=== PATIENT | male | born 1970 | race Caucasian/White ===

== ENCOUNTER 2017-09-29 03:42 | Emergency (ER) | payer SELFPAY ==
[2017-09-29 04:02] VITALS: TEMP 98.7; BMI 30.2
[2017-09-29 04:25] LABS: URINE APPEARANCE CLEAR; URINE BILIRUBIN NEGATIVE (NEGATIVE); URINE BLOOD 2+ (NEGATIVE); URINE COLOR LTYELLOW; URINE GLUCOSE (UA) NEGATIVE (NEGATIVE); URINE KETONE NEGATIVE (NEGATIVE); URINE LEUK ESTERASE TRACE (NEGATIVE); URINE NITRITE NEGATIVE (NEGATIVE); URINE PROTEIN NEGATIVE (NEGATIVE); URINE UROBILINOGEN NEGATIVE mg/dL (0.2-1.0)
[2017-09-29 04:27] LABS: EPI CELLS RARE /HPF (FEW); URINE HYALINE CAST 1 /lpf; URINE MUCUS RARE
--- NOTE | 2017-09-29 04:29 | PDOC ---
History of Present Illness - General History Source: Patient Exam Limitations: No Limitations - History of Present Illness Initial Comments: 09/29/17 05:25 The patient is a 47 year old male with a significant PMH of nephrolithiasis who presents to the emergency department complaining of dysuria. The patient reports a burning sensation every time he urinates. The patient states he has been eating and drinking normally. 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 The patient notes he had a straight cath placed 8 years ago for a urethral stricture. The patient denies chest pain , shortness of breath, headache and dizziness. Denies fever, chills, nausea, vomit, diarrhea and constipation. Denies testicular pain, penile rash, flank pain, discharge, frequency, urgency and hematuria. Allergies: NKA Past surgical history:: None reported. Social history: Current smoker. No reported alcohol or drug use. <Olena Gardner - Last Filed: 09/29/17 05:32> <Deepali Ramos - Last Filed: 09/29/17 20:40> - General Chief Complaint: Urinary Problem Stated Complaint: POSSIBLE UTI Time Seen by Provider: 09/29/17 03:57 Past History <Olena Gardner - Last Filed: 09/29/17 05:32> - Suicide/Smoking/Psychosocial Hx Smoking Status: Yes Smoking History: Current every day smoker Have you smoked in the past 12 months: Yes Number of Cigarettes Smoked Daily: 10 Information on smoking cessation initiated: No Hx Alcohol Use: No Drug/Substance Use Hx: No Substance Use Type: None <Deepali Ramos - Last Filed: 09/29/17 20:40> - Past Medical History Allergies/Adverse Reactions: Allergies Allergy/AdvReac Type Severity Reaction Status Date / Time ibuprofen [From Motrin] AdvReac Verified 09/29/17 04:01 Home Medications: Ambulatory Orders Ondansetron [Zofran *Odt*] 8 mg SL TID PRN #14 od.tablet 11/07/14 Oxycodone HCl/Acetaminophen [Percocet 5-325 mg Tablet] 1 - 2 tab PO Q4H #20 tablet 11/07/14 Tamsulosin HCl 0.4 mg PO DAILY #7 cap.er.24h 11/07/14 Sulfamethoxazole/Trimethoprim [Bactrim Ds -] 1 tab PO BID #14 tablet 09/29/17 Sulfamethoxazole/Trimethoprim [Bactrim Ds -] 1 tab PO BID #14 tablet 09/29/17 Tamsulosin HCl [Flomax] 0.4 mg PO DAILY #10 cap.er.24h 09/29/17 Review of Systems - Review of Systems Able to Perform ROS?: Yes Comments:: 09/29/17 05:33 GENERAL/CONSTITUTIONAL: No fever or chills. No weakness. HEAD, EYES, EARS, NOSE AND THROAT: No change in vision. No ear pain or discharge. No sore throat. CARDIOVASCULAR: No chest pain or shortness of breath. RESPIRATORY: No cough, wheezing, or hemoptysis. GASTROINTESTINAL: No nausea, vomiting, diarrhea or constipation. GENITOURINARY: (+) Dysuria. No frequency, or change in urination. MUSCULOSKELETAL: No joint or muscle swelling or pain. No neck or back pain. SKIN: No rash NEUROLOGIC: No headache, vertigo, loss of consciousness, or change in strength/ sensation. ENDOCRINE: No increased thirst. No abnormal weight change. HEMATOLOGIC/LYMPHATIC: No anemia, easy bleeding, or history of blood clots. ALLERGIC/IMMUNOLOGIC: No hives or skin allergy. <Olena Gardner - Last Filed: 09/29/17 05:32> *Physical Exam - Vital Signs Last Vital Signs Temp Pulse Resp BP Pulse Ox 98.7 F 68 20 114/88 100 09/29/17 04:01 09/29/17 04:01 09/29/17 04:01 09/29/17 04:01 09/29/17 04:01 - Physical Exam Comments: 09/29/17 05:36 GENERAL: Awake, alert, and fully oriented, in no acute distress HEAD: No signs of trauma EYES: PERRLA, EOMI, sclera anicteric, conjunctiva clear ENT: Auricles normal inspection, hearing grossly normal, nares patent, oropharynx clear without exudates. Moist mucosa NECK: Normal ROM, supple, no lymphadenopathy, JVD, or masses LUNGS: Breath sounds equal, clear to auscultation bilaterally. No wheezes, and no crackles HEART: Regular rate and rhythm, normal S1 and S2, no murmurs, rubs or gallops ABDOMEN: Soft, nontender, normoactive bowel sounds. No guarding, no rebound. No masses EXTREMITIES: Normal range of motion, no edema. No clubbing or cyanosis. No cords, erythema, or tenderness NEUROLOGICAL: Cranial nerves II through XII grossly intact. Normal speech, normal gait SKIN: Warm, Dry, normal turgor, no rashes or lesions noted. <Olena Gardner - Last Filed: 09/29/17 05:32> - Vital Signs Last Vital Signs Temp Pulse Resp BP Pulse Ox 98.7 F 68 20 114/88 100 09/29/17 04:01 09/29/17 04:01 09/29/17 04:01 09/29/17 04:01 09/29/17 04:01 <Deepali Ramos - Last Filed: 09/29/17 20:40> ED Treatment Course - ADDITIONAL ORDERS Additional order review: Laboratory Results 09/29/17 04:12 Urine Color Ltyellow Urine Appearance Clear Urine pH 6.0 Ur Specific [place] 1.013 Urine Protein Negative Urine Glucose (UA) Negative Urine Ketones Negative Urine Blood 2+ H Urine Nitrite Negative Urine Bilirubin Negative Urine Urobilinogen Negative Urine WBC (Auto) 3 Urine RBC (Auto) 7 Ur Epithelial Cells Rare Hyaline Casts 1 Urine Mucus Rare <Olena Gardner - Last Filed: 09/29/17 05:32> - ADDITIONAL ORDERS Additional order review: Laboratory Results 09/29/17 04:12 Urine Color Ltyellow Urine Appearance Clear Urine pH 6.0 Ur Specific [place] 1.013 Urine Protein Negative Urine Glucose (UA) Negative Urine Ketones Negative Urine Blood 2+ H Urine Nitrite Negative Urine Bilirubin Negative Urine Urobilinogen Negative <Deepali Ramos - Last Filed: 09/29/17 20:40> Medical Decision Making - Medical Decision Making 09/29/17 20:39 Pt comes with dysuria; he has a hx of kidney stones. He has kidney stones today and UTI; he will be treated with abx and with flomax and he will follow with his urologist. <Deepali Ramos - Last Filed: 09/29/17 20:40> *DC/Admit/Observation/Transfer - Attestations Scribe Attestion: 09/29/17 05:36 Documentation prepared by Olena Gardner, acting as pediatrician/medical doctor for Deepali Ramos MD. <Olena Gardner - Last Filed: 09/29/17 05:32> - Discharge Dispostion Admit: No <RamosDeepali bradford - Last Filed: 09/29/17 20:40> Diagnosis at time of Disposition: Renal colic, Hematuria, UTI (urinary tract infection) - Discharge Dispostion Disposition: HOME Condition at time of disposition: Improved - Prescriptions Prescriptions: Sulfamethoxazole/Trimethoprim [Bactrim Ds -] 1 tab PO BID #14 tablet Sulfamethoxazole/Trimethoprim [Bactrim Ds -] 1 tab PO BID #14 tablet Tamsulosin HCl [Flomax] 0.4 mg PO DAILY #10 cap.er.24h - Patient Instructions Printed Discharge Instructions: Urinary Tract Infection, Kidney Stones -- Adult
--- NOTE | 2017-09-29 04:29 | PDOC ---
Attending Attestation - Resident Resident Name: Andrez Cox - ED Attending Attestation I have performed the following: I have examined & evaluated the patient, The case was reviewed & discussed with the resident, I agree w/resident's findings & plan - HPI HPI: 09/29/17 04:29 Pt comes with fever. - Physicial Exam PE: 09/29/17 04:28 Agree with resident
[2017-09-29] MEDS ORDERED: SULFAMETHOXAZOLE/TRIMETHOPRIM 800MG/160MG D.S. TABLET PO ONE (07:01)
[2017-09-29] MEDS ORDERED: ACETAMINOPHEN 325 MG TABLET (FP) PO ONE (07:02)
[2017-09-29] MEDS ORDERED: SULFAMETHOXAZOLE/TRIMETHOPRIM 800MG/160MG D.S. TABLET ONE (07:05)
[2017-09-29] MEDS ORDERED: ACETAMINOPHEN 325 MG TABLET (FP) ONE (07:05)
[2017-09-29 07:30] VITALS: BP 122/68; PULSE 66
== END 2017-09-29 07:30 | disposition home or self-care (01) ==
LOC: JER 03:42
DX: N39.0 Urinary tract infection, site not specified (principal); N20.0 Calculus of kidney; Z87.442 Personal history of urinary calculi
CPT/HCPCS: 74176; 81003; 81015; 99282-25

== ENCOUNTER → 2018-09-20 | Emergency (ER) | payer SELFPAY ==
[~2018-09-20] MED LIST: ACETAMINOPHEN 325 MG TABLET (FP) ONE; ACETAMINOPHEN 500 MG TABLET (FP) PO ONE
[2018-09-20 23:04] VITALS: BP 112/69; PULSE 85; TEMP 98.2; BMI 23.1
--- NOTE | 2018-09-21 00:02 | PDOC ---
Attending Attestation - HPI HPI: 09/21/18 00:27 The patient is a 48 year old male, with a significant PMH of nephrolithiasis, who presents to the emergency department with back pain s/p fall. The patient states this morning he was leaving the house carrying a 10 lbs air mattress when he slipped and fell onto his back sliding down 10 stairs. The patient denies any loss of consciousness. The patient states he his able to ambulate with pain. Denies any numbness/tingling/loss of sensation. Denies any weakness. Denies any saddle anesthesia. Denies any bowel or bladder incontinence. The patient denies chest pain, shortness of breath, headache and dizziness. Denies fever, chills, nausea, vomit, diarrhea and constipation. Denies dysuria, frequency, urgency and hematuria. Allergies: Ibuprofen Documentation prepared by Kenan Daly, acting as medical physicist for Darrel Travis MD. <Kenan Daly - Last Filed: 09/21/18 00:29> - Resident Resident Name: Ángel Griffith - ED Attending Attestation I have performed the following: I have examined & evaluated the patient, The case was reviewed & discussed with the resident, I agree w/resident's findings & plan, Exceptions are as noted - Physicial Exam PE: 09/21/18 00:30 Patient left after evaluation by Dr. Griffith and prior to my physical exam. Please see physical evaluation by Dr. Griffith. - Medical Decision Making 09/21/18 00:31 48-year-old male presents with several contusions after a mechanical fall. Will rule out fracture of the right elbow, lumbosacral spine and left hip. <Darrel Travis - Last Filed: 09/21/18 00:31>
--- NOTE | 2018-09-21 00:23 | PDOC ---
History of Present Illness - General Chief Complaint: Back Pain Stated Complaint: FALL Time Seen by Provider: 09/21/18 00:01 History Source: Patient Exam Limitations: No Limitations - History of Present Illness Initial Comments: 09/21/18 00:21 Pt. is a 48 y.o. M with no active PMHx. presents to the ED s/p mechanical fall. Pt. states that when he woke up this morning he was stepped out of his home to bring a 10 lb. air mattress back to [employer] when he slipped on the top of his staircase and slid down the stairs hitting his right rib, left hip, back and the back of his head on the way down. Pt. endorses worsening pain and numbness of the left leg and the left hip since this morning. Pt. endorses pain in his right hand as a shooting pain. Pt. endorses numbness of the lateral aspect of the left leg but this has since resolved. Pt. endorsed pain on te right rib but the pain has since resolved. Pt. denies losing consciousness at any time. Pt. denies any prodromal symptoms prior to falling down. Timing/Duration: 24 hours Severity: severe Modifying Factors: improves with: immobilization, movement (makes worse ), rest (makes better ) Associated Symptoms: denies: fever/chills, headaches, malaise, weakness Past History - Past Medical History Allergies/Adverse Reactions: Allergies Allergy/AdvReac Type Severity Reaction Status Date / Time ibuprofen [From Motrin] AdvReac Verified 09/21/18 00:31 Home Medications: Ambulatory Orders Ondansetron [Zofran *Odt*] 8 mg SL TID PRN #14 od.tablet 11/07/14 Oxycodone HCl/Acetaminophen [Percocet 5-325 mg Tablet] 1 - 2 tab PO Q4H #20 tablet 11/07/14 Sulfamethoxazole/Trimethoprim [Bactrim Ds -] 1 tab PO BID #14 tablet 09/29/17 Tamsulosin HCl [Flomax] 0.4 mg PO DAILY #10 cap.er.24h 09/29/17 COPD: No - Immunization History Immunization Up to Date: Yes - Suicide/Smoking/Psychosocial Hx Smoking Status: Yes Smoking History: Never smoked Have you smoked in the past 12 months: No Number of Cigarettes Smoked Daily: 10 Information on smoking cessation initiated: No Hx Alcohol Use: No Drug/Substance Use Hx: No Substance Use Type: None Review of Systems - Review of Systems Constitutional: No: Fever, Weakness HEENTM: No: Blurred Vision, Recent change in vision Respiratory: No: Shortness of Breath Cardiac (ROS): No: Chest Pain, Lightheadedness, Palpitations ABD/GI: Yes: Rectal Bleeding. No: Constipated, Diarrhea : No: Dysuria, Discharge, Frequency Musculoskeletal: Yes: Joint Pain. No: Muscle Weakness Neurological: Yes: Unsteady Gait. No: Headache, Numbness, Paresthesia, Weakness , Ataxia, Dizziness *Physical Exam - Vital Signs Last Vital Signs Temp Pulse Resp BP Pulse Ox 98.2 F 85 18 112/69 98 09/20/18 23:00 09/20/18 23:00 09/20/18 23:00 09/20/18 23:00 09/20/18 23:00 - Physical Exam General Appearance: Yes: Nourished, Appropriately Dressed. No: Apparent Distress HEENT: positive: Normal Voice, Symmetrical Neck: negative: Decreased range of motion Respiratory/Chest: positive: Chest Tender, Lungs Clear, Normal Breath Sounds. negative: Accessory Muscle Use, Crackles, Wheezing Cardiovascular: positive: Regular Rhythm, Regular Rate, S1, S2, Edema Vascular Pulses: Dorsalis-Pedis (R): 2+, Doralis-Pedis (L): 2+ Gastrointestinal/Abdominal: positive: Normal Bowel Sounds, Soft Musculoskeletal: positive: Decreased Range of Motion Extremity: positive: Normal Capillary Refill, Normal Range of Motion, Tender, Pelvis Stable, Delayed Capillary Refill. negative: Calf Tenderness Integumentary: positive: Normal Color, Dry, Warm. negative: Erythema Neurologic: positive: Normal Response, Motor Strength 5/5. negative: Numbness Moderate Sedation - Procedure Monitoring Vital Signs: Procedure Monitoring Vital Signs Temperature 98.2 F 09/20/18 23:00 Pulse Rate 85 09/20/18 23:00 Respiratory Rate 18 09/20/18 23:00 Blood Pressure 112/69 09/20/18 23:00 O2 Sat by Pulse Oximetry (%) 98 09/20/18 23:00 ED Treatment Course - RADIOLOGY Radiology Studies Ordered: Category Date Time Status CHEST PA & LAT [RAD] Stat Radiology 09/21/18 00:14 Ordered HIP & PELVIS-LEFT [RAD] Stat Radiology 09/21/18 00:14 Ordered SPINE-LUMBAR SACRAL [RAD] Stat Radiology 09/21/18 00:14 Ordered *DC/Admit/Observation/Transfer Diagnosis at time of Disposition: Back pain, Leg pain, lateral - Discharge Dispostion Disposition: ELOPED Condition at time of disposition: Stable - Referrals - Patient Instructions - Post Discharge Activity
== END | disposition left against medical advice (07) ==
LOC: JER 22:52
CPT/HCPCS: 99282-25

== ENCOUNTER 2018-09-27 21:20 | Emergency (ER) | payer SELFPAY ==
[2018-09-27 22:33] VITALS: BP 105/65; PULSE 61; TEMP 97.7; BMI 23.1
--- NOTE | 2018-09-27 22:59 | PDOC ---
History of Present Illness - General Chief Complaint: Back Pain Stated Complaint: BACK PAIN Time Seen by Provider: 09/27/18 22:43 History Source: Patient Exam Limitations: No Limitations - History of Present Illness Initial Comments: 09/27/18 22:55 CHIEF COMPLAINT: Lower back pain HISTORY OF PRESENT ILLNESS: 48-year-old male denies medical history presents emergency Department with lower back pain status post slip and fall down stairs on 09/20. Patient states he walked out of his home while it was raining and slipped on the top step up a flight of 10 metal steps. Patient reports the pain is worse in the lower back and has been taking Tylenol for the past week. Pain is nonradiating he denies any neurosensory deficits. He denies incontinence of bladder or bowel as well as urinary retention. Denies saddle anesthesia, foot drop, history of IV drug use or cancer. REVIEW OF SYSTEMS: GENERAL: Afebrile, denies any weakness RESPIRATORY: No cough, wheezing, or hemoptysis. CARDIAC: No chest pain or shortness of breath MUSCULOSKELETAL: Pain to generalized lower back. No point tenderness. SKIN : No erythema, no bruising, no deformity. GI/: Denies any abdominal pain, no urinary difficulty, incontinence or urinary retention. RECTAL: Denies any difficulty NEUROLOGICAL: Denies any numbness or tingling. No neurosensory deficits. PHYSICAL EXAM: GENERAL: The patient is awake, alert, and fully oriented, in no acute distress. RESPIRATORY: Lungs clear bilaterally, no rhonchi wheezes or crackles CARDIAC: S1-S2 audible, no murmur rub or gallop MUSCULOSKELETAL: Pain to generalized lower back, nonradiating, no tingling or sensory deficit. No spinal point tenderness. Normal reflexive and no deficits to sensation or strength. Less than 2 second cap refill, +2 pedal pulses. GI/: Abdomen soft, nontender, nondistended. No rebound tenderness. No masses palpable. RECTAL: Deferred patient with no neurological findings SKIN: Warm, Dry, normal turgor, no erythema, no edema no bruising. Past History - Past Medical History Allergies/Adverse Reactions: Allergies Allergy/AdvReac Type Severity Reaction Status Date / Time ibuprofen [From Motrin] AdvReac Verified 09/21/18 00:31 Home Medications: Ambulatory Orders Tamsulosin HCl [Flomax] 0.4 mg PO DAILY PRN 09/27/18 COPD: No - Immunization History Immunization Up to Date: Yes - Suicide/Smoking/Psychosocial Hx Smoking Status: Yes Smoking History: Current every day smoker Have you smoked in the past 12 months: No Number of Cigarettes Smoked Daily: 10 Information on smoking cessation initiated: No Hx Alcohol Use: No Drug/Substance Use Hx: No Substance Use Type: None *Physical Exam - Vital Signs Last Vital Signs Temp Pulse Resp BP Pulse Ox 97.7 F 61 19 105/65 100 09/27/18 22:31 09/27/18 22:31 09/27/18 22:31 09/27/18 22:31 09/27/18 22:31 Moderate Sedation - Procedure Monitoring Vital Signs: Procedure Monitoring Vital Signs Temperature 97.7 F 09/27/18 22:31 Pulse Rate 61 09/27/18 22:31 Respiratory Rate 19 09/27/18 22:31 Blood Pressure 105/65 09/27/18 22:31 O2 Sat by Pulse Oximetry (%) 100 09/27/18 22:31 Medical Decision Making - Medical Decision Making 09/28/18 00:05 A/P: 48-year-old male with history of kidney stones presents emergency Department with back pain status post fall No bony tenderness to spine. Neurovascular intact No bruising present to back Ambulatory with steady gait Percocet, reassess Patient reports complete relief of pain after receiving one Percocet. Patient is requesting discharge at this time. I will discharge the patient home to follow-up with his primary doctor as needed. Patient has been instructed to continue to take Tylenol for pain relief. *DC/Admit/Observation/Transfer Diagnosis at time of Disposition: Back pain Qualifiers: Back pain location: low back pain Chronicity: acute Back pain laterality: bilateral Sciatica presence: without sciatica Qualified Code(s): M54.5 - Low back pain - Discharge Dispostion Disposition: HOME Condition at time of disposition: Stable Decision to Admit order: No - Referrals - Patient Instructions Additional Instructions: Take Tylenol as needed for pain. Follow manufacturers instructions for appropriate dosage. Try not to walk or bear weight as much as possible for the next 3 days. Warm moist heat applied to your back may help alleviate pain. Return to emergency department for numbness or tingling, worsening pain, or any other concerns. Thank you very much for choosing us to provide your emergent healthcare needs. - Post Discharge Activity
== END 2018-09-28 00:25 | disposition home or self-care (01) ==
LOC: JER 21:20
DX: M54.5 Low back pain (principal); W10.8XXA Fall (on) (from) other stairs and steps, initial encounter; Y93.89 Activity, other specified; Y92.038 Other place in apartment as the place of occurrence of the external cause; Y99.8 Other external cause status
CPT/HCPCS: 99282-25

== ENCOUNTER 2018-10-01 14:46 | Emergency (ER) | payer SELFPAY ==
[2018-10-01 15:05] VITALS: BP 115/77; PULSE 57; TEMP 97.7; BMI 23.1
[2018-10-01] MEDS ORDERED: RANITIDINE HCL 150 MG TABLET (FP) PO ONE (15:41)
[2018-10-01] MEDS ORDERED: LIDOCAINE VISCOUS 2% ORAL/TOP 20 ML UNIT-DOSE CUP MM ONE (15:41)
[2018-10-01] MEDS ORDERED: ONDANSETRON *ODT* 4 MG TABLET SL ONE (15:41)
[2018-10-01] MEDS ORDERED: MAG HYDROX/AL HYDROX/SIMETH -MYLANTA- ORAL SUSPENSION PO ONE (15:41)
--- NOTE | 2018-10-01 15:46 | PDOC ---
Attending Attestation - Resident Resident Name: Trent Yao - ED Attending Attestation I have performed the following: I have examined & evaluated the patient, The case was reviewed & discussed with the resident, I agree w/resident's findings & plan, Exceptions are as noted - HPI HPI: 10/01/18 15:43 48y M hx of gastritis (formerly on nexium) presents with 1 month of epigastric burning radiating up to the chest. Patient notes that the pain is similar to him and typically occurs after eating any type of food, and usually occurs at night when he is sleeping lying down. Patient does endorse some nausea and vomiting . 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 Patient denies eating significant amount of spicy foods, NSAIDs, EtOH abuse. Patient does note he drinks a lot of soda. Patient notes that his Nexium use to work however has not been very effective recently so he has not been using it. +smoking - Physicial Exam PE: 10/01/18 16:02 GENERAL: The patient is awake, alert, and fully oriented, Nontoxic - in no acute distress. HEAD: Normocephalic, atraumatic. EYES: extraocular movements intact, sclera anicteric, conjunctiva clear. ENT: Normal voice, Moist mucous membranes. NECK: Normal range of motion, supple LUNGS: Breath sounds equal, clear to auscultation bilaterally. No wheezes, no rhonchi, no rales. HEART: Regular rate and rhythm, normal S1 and S2 without murmur, rub or gallop. ABDOMEN: Soft, nontender, normoactive bowel sounds. No guarding, no rebound. No CVA tenderness EXTREMITIES: Normal range of motion, no edema. No clubbing or cyanosis. No cords, erythema, or tenderness. NEUROLOGICAL: No facial assymetry, Normal speech, PSYCH: Normal mood, normal affect. SKIN: Warm, Dry, normal turgor, - Medical Decision Making 10/01/18 16:02 Suspect acid reflux/gastritis No exertional symptoms to suggest acute coronary disease Intermittent symptoms over long period time suggest against pancreititis Will obtain an EKG to screen for ACS, will treat the patient symptomatically will refer to PMD and GI Heart Score/ECG Review - ECG Impressions Comment:: 10/01/18 16:04 Twelve-lead EKG was performed and reviewed by me. There is normal sinus rhythm with Rate of 51 Normal axis Right bundle-branch block No ST changes suggestive of acute ischemia
[2018-10-01] MEDS ORDERED: MAG HYDROX/AL HYDROX/SIMETH 30 ML UNIT-DOSE CUP ONE (15:53)
[2018-10-01] MEDS ORDERED: ONDANSETRON *ODT* 4 MG TABLET ONE (15:53)
[2018-10-01] MEDS ORDERED: LIDOCAINE VISCOUS 2% ORAL/TOP 20 ML UNIT-DOSE CUP ONE (15:53)
[2018-10-01] MEDS ORDERED: RANITIDINE HCL 150 MG TABLET (FP) ONE (15:53)
--- NOTE | 2018-10-01 16:02 | PDOC ---
History of Present Illness - General Chief Complaint: Pain, Acute Stated Complaint: ABD PAIN Time Seen by Provider: 10/01/18 15:22 History Source: Patient Exam Limitations: No Limitations - History of Present Illness Initial Comments: 10/01/18 15:57 Patient is a 48M with history of nephrolithiasis here today complaining of 1 month of epigastric burning pain. Patient complains of vomiting, last episode two days ago. Denies fevers, chills. Denies blood and bile in vomit. Patient states his pain gets worse with laying down, eating and taking motrin. Patient states that he used to take nexium, but no longer takes any medication. Patient has no pcp follow up. Denies cardiac issue. Denies chest pain, shortness of breath. Past History - Past Medical History Allergies/Adverse Reactions: Allergies Allergy/AdvReac Type Severity Reaction Status Date / Time ibuprofen [From Motrin] AdvReac Verified 10/01/18 15:02 Home Medications: Ambulatory Orders Tamsulosin HCl [Flomax] 0.4 mg PO DAILY PRN 09/27/18 Esomeprazole Magnesium [Nexium 24Hr] 40 mg PO DAILY 10/01/18 Ondansetron [Zofran *Odt*] 8 mg SL BID #10 od.tablet 10/01/18 COPD: No - Immunization History Immunization Up to Date: Yes - Suicide/Smoking/Psychosocial Hx Smoking Status: Yes Smoking History: Unknown if ever smoked Have you smoked in the past 12 months: No Number of Cigarettes Smoked Daily: 10 Hx Alcohol Use: No Drug/Substance Use Hx: No Substance Use Type: None Review of Systems - Review of Systems Comments:: 10/01/18 15:59 GENERAL/CONSTITUTIONAL: No fever or chills. No weakness. HEAD, EYES, EARS, NOSE AND THROAT: No change in vision. No sore throat. CARDIOVASCULAR: No chest pain or shortness of breath RESPIRATORY: No cough, wheezing, or hemoptysis. GASTROINTESTINAL: +nausea, vomiting, no diarrhea or constipation. GENITOURINARY: No dysuria, frequency, or change in urination. MUSCULOSKELETAL: No joint or muscle swelling or pain. SKIN: No rash NEUROLOGIC: No headache, vertigo, loss of consciousness, or change in strength/ sensation. ALLERGIC/IMMUNOLOGIC: No hives or skin allergy. *Physical Exam - Vital Signs Last Vital Signs Temp Pulse Resp BP Pulse Ox 97.7 F 57 L 18 115/77 99 10/01/18 15:04 10/01/18 15:04 10/01/18 15:04 10/01/18 15:04 10/01/18 15:04 - Physical Exam Comments: 10/01/18 16:00 GENERAL: Awake, alert, and fully oriented, in no acute distress HEAD: No signs of trauma, normocephalic, atraumatic EYES: PERRLA, EOMI, sclera anicteric, conjunctiva clear ENT: Auricles normal inspection, hearing grossly normal, nares patent, oropharynx clear without exudates. Moist mucosa NECK: Normal ROM, supple, no lymphadenopathy, JVD, or masses LUNGS: No distress, speaks full sentences, clear to auscultation bilaterally HEART: Regular rate and rhythm, normal S1 and S2, no murmurs, rubs or gallops, peripheral pulses normal and equal bilaterally. ABDOMEN: Soft, nontender, normoactive bowel sounds. No guarding, no rebound. No masses EXTREMITIES: Normal inspection, Normal range of motion, no edema. No clubbing or cyanosis. NEUROLOGICAL: Cranial nerves II through XII grossly intact. Normal speech, normal gait, no focal sensorimotor deficits SKIN: Warm, Dry, normal turgor, no rashes or lesions noted. Moderate Sedation - Procedure Monitoring Vital Signs: Procedure Monitoring Vital Signs Temperature 97.7 F 10/01/18 15:04 Pulse Rate 57 L 10/01/18 15:04 Respiratory Rate 18 10/01/18 15:04 Blood Pressure 115/77 10/01/18 15:04 O2 Sat by Pulse Oximetry (%) 99 10/01/18 15:04 Medical Decision Making - Medical Decision Making 10/01/18 16:00 Patient is 48M with history of nephrolithiasis here today with epigastric pain. Story very consistent with Gastritis/GERD, no cardiac risk factors. Nontender abdominal exam. Will set patient up with PCP, appointment made for 10/04/18. Will also refer to GI. Will treat with maalox, ranitidine, zofran, viscous lidocaine. Will reassess, likely discharge home. Reassesed, pain improved. Discharged home with return precautions. *DC/Admit/Observation/Transfer Diagnosis at time of Disposition: Gastritis - Discharge Dispostion Disposition: HOME Condition at time of disposition: Good Decision to Admit order: No - Prescriptions Prescriptions: Ondansetron [Zofran *Odt*] 8 mg SL BID #10 od.tablet - Referrals Referrals: Virginia Clrake MD [Primary Care Provider] - Sascha Le MD [Staff Physician] - - Patient Instructions Printed Discharge Instructions: DI for Gastritis Additional Instructions: Please follow up with your primary care doctor, an appointment has been made for you on 10/04/18 at 10am. Please take ranitidine and maalox to help your symptoms. Please return if you have any new, worsening or concerning symptoms, especially chest pain, increasing pain, repeated vomiting and shortness of breath. - Post Discharge Activity
--- NOTE | 2018-10-02 19:00 | EKG ---
Test Reason : Blood Pressure : / mmHG Vent. Rate : 051 BPM Atrial Rate : 051 BPM P-R Int : 132 ms QRS Dur : 120 ms QT Int : 436 ms P-R-T Axes : 057 013 040 degrees QTc Int : 401 ms SINUS BRADYCARDIA RIGHT BUNDLE BRANCH BLOCK ABNORMAL ECG NO PREVIOUS ECGS AVAILABLE Confirmed by JUNITO KRAFT, RADHA ([id number]) on 10/02/2018 6:59:37 PM Referred By: Confirmed By:RADHA WILD MD
== END 2018-10-01 16:19 | disposition home or self-care (01) ==
LOC: SUPCPDRO 14:46 → JER 14:46
DX: K29.70 Gastritis, unspecified, without bleeding (principal); Z87.442 Personal history of urinary calculi
CPT/HCPCS: 93005; 93010; 99283-25; Q0162

== ENCOUNTER 2020-07-17 18:23 | Emergency (ER) | payer OTHER ==
[2020-07-17 18:37] VITALS: BP 121/81; PULSE 65; TEMP 97.3; BMI 25.8
--- OUTSIDE RECORDS SUMMARY | 2020-07-17 18:41 | XMS ---
:1970 Author Organization [facility] Support Name Relationship Address Phone [employer] Unavailable [address] [place] [address] OJ CHAHAL [address] [phone] [place] [address] MICHELE JUNIOR SISTER [address] [phone] [place] [address] Re-disclosure Warning The records that you are about to access may contain information from federally- assisted alcohol or drug abuse programs. If such information is present, then the following federally mandated warning applies: This information has been disclosed to you from records protected by federal confidentiality rules (42 CFR part 2). The federal rules prohibit you from making any further disclosure of this information unless further disclosure is expressly permitted by the written consent of the person to whom it pertains or as otherwise permitted by 42 CFR part 2. A general authorization for the release of medical or other information is NOT sufficient for this purpose. The Federal rules restrict any use of the information to criminally investigate or prosecute any alcohol or drug abuse patient.The records that you are about to access may contain highly sensitive health information, the redisclosure of which is protected by Article 27-F of the [facility] Public Health law. If you continue you may haveaccess to information: Regarding HIV / AIDS; Provided by facilities licensed or operated by the [facility] Office of Mental Health; or Provided by the [facility] Office for People With Developmental Disabilities. If such information is present, then the following [facility] mandated warning applies: This information has been disclosed to you from confidential records which are protected by state law. State law prohibits you from making any further disclosure of this information without the specific written consent of the person to whom it pertains, or as otherwise permitted by law. Any unauthorized further disclosure in violation of state law may result in a fine or skilled nursing sentence or both. A general authorization for the release of medical or other information is NOT sufficient authorization for further disclosure. Insurance Providers Payer name Policy type Policy ID Covered Covered libertarian's Policy P albertina / Coverage libertarian ID relationship to [employer] type rodriguez PO [id number] 200 [employer] NON CAP Results ID Date Data Source [id number] 02/02/2020 12:00:00 AM EDT [facility] Name Value Range Interpretation Code Description Data Nohemi rce(s) Supporting Document(s ) [facility]CoV [facility] RNA XXX DIA+probe- Imp This lab was ordered by [facility] and reported by [facility]. ID Date Data Source [id number] 02/02/2020 12:00:00 AM EDT [facility] Name Value Range Interpretation Code Description Data Nohemi rce(s) Supporting Document(s ) 2018-nCoV [facility] RNA XXX DIA+probe- Imp This lab was ordered by [facility] and reported by [employer] Procedure
--- NOTE | 2020-07-17 19:39 | PDOC ---
History of Present Illness - General Chief Complaint: Penile Drainage Stated Complaint: PENIAL PAIN Time Seen by Provider: 07/17/20 18:34 History Source: Patient Exam Limitations: No Limitations - History of Present Illness Travel History: No Initial Comments: 07/17/20 19:34 50-year-old male presents to the ED with complaints of prostate discomfort along with urinary frequency along with urgency for the past 2 weeks. Patient denies any scrotal pain, penile discomfort, penile discharge, difficulty moving his bowels, or anus pain. Patient denies extramarital sexual affairs and has not seen his PCP for the above. Timing/Duration: reports: intermittent Quality: reports: moderate Abdominal Pain Onset Location: denies: suprapubic Pain Radiation: denies: no radiation Aggravating Factors: worse with: None Alleviating Factors: worse with: None Past History - Travel History Traveled outside of the country in the last 30 days: No Close contact w/someone who was outside of country & ill: No - Medical History Allergies/Adverse Reactions: Allergies Allergy/AdvReac Type Severity Reaction Status Date / Time ibuprofen [From Motrin] AdvReac Verified 07/17/20 18:27 Home Medications: Ambulatory Orders Tamsulosin HCl [Flomax] 0.4 mg PO DAILY PRN 09/27/18 Esomeprazole Magnesium [Nexium 24Hr] 40 mg PO DAILY 10/01/18 Ondansetron [Zofran *Odt*] 8 mg SL BID #10 od.tablet 10/01/18 Sulfamethoxazole/Trimethoprim [Bactrim Ds -] 1 tab PO BID #60 tablet 07/17/20 COPD: No - Immunization History Immunization Up to Date: Yes - Psycho-Social/Smoking History Smoking Status: Yes Smoking History: Unknown if ever smoked Have you smoked in the past 12 months: No Number of Cigarettes Smoked Daily: 10 - Substance Abuse Hx (Audit-C & DAST Scrn) How often the patient has a drink containing alcohol: Never Score: In Men: 4 or > Positive; In Women: 3 or > Positive: 0 Screen Result (Pos requires Nsg. Audit-10AR): Negative Review of Systems - Review of Systems Able to Perform ROS?: No Is the patient limited Faroese proficient: No Constitutional: No: Symptoms Reported HEENTM: No: Symptoms Reported Respiratory: No: Symptoms reported Cardiac (ROS): No: Symptoms Reported ABD/GI: No: Symptoms Reported : Yes: Frequency, Other. No: Burning, Dysuria, Flank Pain, Hematuria, Testicular Mass, Testicular Swelling, Lesions, Testicular Pain Musculoskeletal: No: Symptoms Reported Integumentary: No: Symptoms Reported Neurological: No: Symptoms reported Hematologic/Lymphatic: No: Symptoms Reported *Physical Exam - Vital Signs Last Vital Signs Temp Pulse Resp BP Pulse Ox 97.3 F L 65 18 121/81 100 07/17/20 18:27 07/17/20 18:27 07/17/20 18:27 07/17/20 18:27 07/17/20 18:27 - Physical Exam General Appearance: Yes: Nourished, Appropriately Dressed. No: Apparent Distress HEENT: positive: EOMI Neck: negative: Decreased range of motion Respiratory/Chest: negative: Respiratory Distress Cardiovascular: negative: Edema Gastrointestinal/Abdominal: positive: Soft. negative: Tenderness Male Genitalia: negative: normal prostate, testicular tenderness, testicular mass, epididymus tender, inguinal hernia Musculoskeletal: negative: CVA Tenderness Extremity: positive: Normal Inspection Integumentary: positive: Normal Color Neurologic: positive: Motor Strength 5/5 (ambulatory) Medical Decision Making - Medical Decision Making 07/17/20 19:41 Chief complaint: prostate discomfort but unfortunately with urinary frequency urgency Exam: Pt with firm tender prostate Plan: ua, uc x, std w/u . refer to urology Discharge - Discharge Information Problems reviewed: Yes Clinical Impression/Diagnosis: Prostatitis Condition: Good Disposition: HOME - Additional Discharge Information Prescriptions: Sulfamethoxazole/Trimethoprim [Bactrim Ds -] 1 tab PO BID #60 tablet - Follow up/Referral Referrals: Abilio Muhammad MD [Staff Physician] - - Patient Discharge Instructions Patient Printed Discharge Instructions: Prostatitis Additional Instructions: Take Antibiotics as prescribed. Follow up with urology - Post Discharge Activity
[2020-07-17 20:16] LABS: PH,URINE 7.5 (5.0-8.0); URINE APPEARANCE CLEAR; URINE BILIRUBIN NEGATIVE (NEGATIVE); URINE COLOR YELLOW; URINE GLUCOSE (UA) NEGATIVE (NEGATIVE); URINE KETONE NEGATIVE (NEGATIVE); URINE LEUK ESTERASE NEGATIVE (NEGATIVE); URINE NITRITE NEGATIVE (NEGATIVE); URINE PROTEIN NEGATIVE (NEGATIVE); URINE UROBILINOGEN 0.2 mg/dL (0.2-1.0)
== END 2020-07-17 20:02 | disposition home or self-care (01) ==
LOC: JERFT 18:23
DX: N41.0 Acute prostatitis (principal)
CPT/HCPCS: 36415; 81003; 87086; 87491; 87591; 99284-25